=== PATIENT | male | born 1970 | race African-American/Black ===

== ENCOUNTER 2017-08-21 23:03 | Emergency (ER) | payer OTHER ==
[2017-08-21 23:13] VITALS: BP 141/101; PULSE 82; TEMP 98; BMI 28.3
--- NOTE | 2017-08-22 00:07 | PDOC ---
History of Present Illness - General Chief Complaint: Cold Symptoms Stated Complaint: COLD SYMPTOMS Time Seen by Provider: 08/22/17 00:00 - History of Present Illness Initial Comments: 08/22/17 00:15 The patient is a 47 year old male with a history of HTN who presents for evaluation of Cough and chest congestion. The patient reports a 1 week history of chest congestion with an associated productive cough with greenish sputum. He reports continued symptoms prompting his presentation to the ED for further evaluation. He otherwise denies fevers, chills, SOB, chest pain, nausea, vomiting, abdominal pain, or changes with urination or bowel movements. Past History - Past Medical History Allergies/Adverse Reactions: Allergies Allergy/AdvReac Type Severity Reaction Status Date / Time amoxicillin [Amoxicillin] Allergy Intermediate Verified 08/21/17 23:13 Penicillins Allergy Intermediate Verified 08/21/17 23:13 Home Medications: Ambulatory Orders Unobtainable Home Med List 0 dose .ROUTE UTDICT 10/08/12 Ciprofloxacin [Cipro] 500 mg PO BID #14 tablet 10/09/12 Ibuprofen [Motrin -] 600 mg PO QID #20 tablet 10/09/12 Azithromycin [Zithromax 250mg Tablets -] 250 mg PO UTDICT #6 tab 08/22/17 - Suicide/Smoking/Psychosocial Hx Smoking Status: Yes Smoking History: Never smoked Have you smoked in the past 12 months: No Number of Cigarettes Smoked Daily: 10 Information on smoking cessation initiated: No Hx Alcohol Use: No Drug/Substance Use Hx: No Review of Systems - Review of Systems Comments:: 08/22/17 00:17 Constitutional: No fevers, chills, fatigue, malaise HEENT: No Rhinorrhea, nasal congestion, visual changes Cardiovascular: No chest pain, syncope, palpitations, lightheadedness Respiratory: Cough. No SOB, Hemoptysis, Gastrointestinal: No Abdominal pain, Nausea, Vomiting, Constipation, Diarrhea, Melena Genitourinary: No Dysuria, Frequency, Urgency, Hesitancy, Hematuria, Flank pain Musculoskeletal: No Myalgia, arthralgia Skin: No rashes, itching, bruising, pallor Neurologic: No Headache, Dizziness, Numbness, Weakness, or Tingling Psychiatric: No Hallucinations. No SI or HI *Physical Exam - Vital Signs Last Vital Signs Temp Pulse Resp BP Pulse Ox 98.0 F 82 16 141/101 100 08/21/17 23:11 08/21/17 23:11 08/21/17 23:11 08/21/17 23:11 08/21/17 23:11 - Physical Exam Comments: 08/22/17 00:17 General Appearance: Nourished. No Apparent Distress HEENT: EOMI, TACO. No Pharyngeal Erythema, Tonsillar Exudate, Tonsillar Erythema Neck: No Cervical Lymphadenopathy Respiratory/Chest: Lungs Clear, Normal Breath Sounds. No Crackles, Rales, Rhonchi, Wheezing Cardiovascular: Regular Rhythm, Regular Rate. No Murmur, Gallops, Rubs Gastrointestinal/Abdominal: Normal Bowel Sounds, Soft. No Guarding, Rebound, Tenderness Musculoskeletal: No CVA Tenderness Extremity: Normal Capillary Refill Integumentary: Normal Color, Dry, Warm Neurologic: Fully Oriented, Alert, Normal Mood/Affect, Normal Response, Medical Decision Making - Medical Decision Making 08/22/17 00:18 The patient is a 47 year old male with a history of HTN who presents for evaluation of Cough and chest congestion. Differential includes but is not limited to: Pneumonia, viral URI. Given the patient's history, we will obtain a chest plain film to evaluate further. We will continue to monitor and reassess while here in the ED. 08/22/17 00:44 Chest x-ray is unremarkable as preliminarily read by ER physician. Given the length of the patient's symptoms, we will treat with azithromycin. We are comfortable discharging the patient home at this time with primary care provider follow up. We discussed the results, plan and return precautions with the patient who voiced understanding and is agreeable with the plan. *DC/Admit/Observation/Transfer Diagnosis at time of Disposition: Bronchitis - Discharge Dispostion Disposition: HOME Condition at time of disposition: Stable Decision to Admit order: No - Prescriptions Prescriptions: Azithromycin [Zithromax 250mg Tablets -] 250 mg PO UTDICT #6 tab - Referrals Referrals: Yeison Acevedo MD [Primary Care Provider] - - Patient Instructions Printed Discharge Instructions: DI for Acute Bronchitis Additional Instructions: Please return to the ER if you experience concerning or worsening symptoms including worsening difficulty breathing, fevers, or chest pain. We have sent a prescription to your pharmacy for antibiotics that you should take as directed. Please call to schedule a follow up appointment with your primary care provider within 2-3 days to discuss your ER visit and further management of your symptoms. - Post Discharge Activity
--- NOTE | 2017-08-22 01:16 | PDOC ---
Attending Attestation - Resident Resident Name: Migue Chairez - ED Attending Attestation I have performed the following: I have examined & evaluated the patient, The case was reviewed & discussed with the resident, I agree w/resident's findings & plan, Exceptions are as noted - HPI HPI: 08/22/17 01:14 Mr. Mccray is a 47-year-old male with a extensive smoking history who presents emergency Department tonight with a complaint of cough. His symptoms have been present for the past week. He's noted no fevers or chills. He denies exertional shortness of breath. He denies chest pain. He denies lower extremity edema. - Physicial Exam PE: 08/22/17 01:15 GENERAL: The patient is in no acute distress, sleeping in wheelchair LUNGS: Breath sounds equal, expiratory rhonchi, no wheezing noted HEART:Regular rate and rhythm, normal S1 and S2 without murmur, rub or gallop. ABDOMEN: Soft, nontender EXTREMITIES: Normal range of motion, no edema. NEUROLOGICAL: Cranial nerves II through XII grossly intact. Normal speech. No focal neurological deficits. MUSCULOSKELETAL: Back non-tender to palpation, no CVA tenderness SKIN: Warm, Dry, normal turgor, no rashes or lesions noted. - Medical Decision Making 08/22/17 01:15 47-year-old male presenting to emergency department with a complaint of cough. Patient has an extensive smoking history, though denies a history of COPD. Chest x-ray performed. No consolidation noted. Likely bronchitis Will treat with Azithromycin Pt asked to follow up with PMD Clinical impression: cough, initial presentation
[2017-08-22] MEDS ORDERED: AZITHROMYCIN 250 MG TABLET ONE (01:57)
== END 2017-08-22 02:06 | disposition home or self-care (01) ==
LOC: JER 23:03
DX: J20.9 Acute bronchitis, unspecified (principal); I10 Essential (primary) hypertension
CPT/HCPCS: 71046-TC-FY; 99281-25

== ENCOUNTER 2018-12-11 23:20 | Emergency (ER) | payer OTHER ==
[2018-12-11 23:46] VITALS: PULSE 77; BMI 25.7
--- NOTE | 2018-12-12 00:53 | PDOC ---
History of Present Illness - General Chief Complaint: Wound Stated Complaint: RASH Time Seen by Provider: 12/12/18 00:47 - History of Present Illness Initial Comments: 12/12/18 00:48 48 yo M with no significant pmh who p/w left sided suprapubic skin swelling. Patient reports 2 days of progressive left sided suprpapubic skin swelling, with 1 day of clear, whitish drainage. Patient denies h/o similar presentation. States that area of swelling is where he wears his seatbelt. Reports itching the area of swelling with fingernails and subsequent bleeding two days ago. States that he is scheduled to have vasectomy in two days. Took one Clindamyicn pill (12/11/18) that he had from prior odontogenic infection. Patient denies AGOSTO, vision change, palpitations, cough, wheezing, orthopena, PND , leg swelling/pain, N/V, F,C, CP, SOB, urinary complaints, hematuria, BPR, abdominal pain, diarrhea, constipation, lightheadedness, weakness, sensory changes. PMHx: as noted above ROS: as noted SHx: Denies IVDA Allergies: PCN Past History - Past Medical History Allergies/Adverse Reactions: Allergies Allergy/AdvReac Type Severity Reaction Status Date / Time amoxicillin [Amoxicillin] Allergy Intermediate Verified 12/12/18 01:11 Penicillins Allergy Intermediate Verified 12/12/18 01:11 Home Medications: Ambulatory Orders Unobtainable Home Med List 0 dose .ROUTE UTDICT 10/08/12 Ciprofloxacin [Cipro] 500 mg PO BID #14 tablet 10/09/12 Ibuprofen [Motrin -] 600 mg PO QID #20 tablet 10/09/12 Azithromycin [Zithromax 250mg Tablets -] 250 mg PO UTDICT #6 tab 08/22/17 Clindamycin [Cleocin -] 300 mg PO TID #21 capsule 12/12/18 Permethrin 5% Topical Cream [Elimite -] 1 applic TP ONCE #1 tube 12/12/18 - Suicide/Smoking/Psychosocial Hx Smoking Status: Yes Smoking History: Unknown if ever smoked Have you smoked in the past 12 months: No Number of Cigarettes Smoked Daily: 10 Hx Alcohol Use: No Drug/Substance Use Hx: No Review of Systems - Review of Systems Comments:: 12/12/18 00:48 GENERAL/CONSTITUTIONAL: No fever or chills. No weakness. HEAD, EYES, EARS, NOSE AND THROAT: No change in vision. No ear pain or discharge. No sore throat. CARDIOVASCULAR: No chest pain or shortness of breath RESPIRATORY: No cough, wheezing, or hemoptysis. GASTROINTESTINAL: No nausea, vomiting, diarrhea or constipation. GENITOURINARY: No dysuria, frequency, or change in urination. MUSCULOSKELETAL: No joint or muscle swelling or pain. No neck or back pain. SKIN: + Left sided suprapubic skin change. NEUROLOGIC: No headache, vertigo, loss of consciousness, or change in strength/ sensation. ENDOCRINE: No increased thirst. No abnormal weight change HEMATOLOGIC/LYMPHATIC: No anemia, easy bleeding, or history of blood clots. ALLERGIC/IMMUNOLOGIC: No hives or skin allergy. *Physical Exam - Vital Signs Last Vital Signs Temp Pulse Resp BP Pulse Ox 97.7 F 77 20 126/89 99 12/11/18 23:44 12/11/18 23:44 12/11/18 23:44 12/11/18 23:44 12/11/18 23:44 - Physical Exam Comments: 12/12/18 00:48 GENERAL: Awake, alert, and fully oriented, in no acute distress HEAD: No signs of trauma, normocephalic, atraumatic EYES: PERRLA, EOMI, sclera anicteric, conjunctiva clear ENT: Auricles normal inspection, hearing grossly normal, nares patent, oropharynx clear without exudates. Moist mucosa NECK: Normal ROM, supple, no lymphadenopathy, JVD, or masses LUNGS: No distress, speaks full sentences, clear to auscultation bilaterally HEART: Regular rate and rhythm, normal S1 and S2, no murmurs, rubs or gallops, peripheral pulses normal and equal bilaterally. ABDOMEN: Soft, nontender, normoactive bowel sounds. No guarding, no rebound. No masses GENITOURINARY: Neg scrotal, penile lesions. Neg testicular swelling, ttp. Neg penile discharge. Neg inguinal lymphadenopathy, or bulging. Neg perianal skin change. EXTREMITIES : Normal inspection, Normal range of motion, no edema. No clubbing or cyanosis NEUROLOGICAL: Cranial nerves II through XII grossly intact. Normal speech, normal gait, no focal sensorimotor deficits SKIN: + 4 x 2 cm, area of induration, firmness, with lateral punctum, actively draining white discharge. Absent fluctuance, erythema, streaking, lymphadenopathy. Warm, Dry, normal turgor, no rashes or lesions noted Procedures - Incision and Drainage I&D Site: Left: Groin Betadine cleansed: Yes Anesthesia: 1% Lidocaine Blade Size: 10 Iodinated Packin/4 in Plain Packing: No Complications: none Dressing: Yes Medical Decision Making - Medical Decision Making 12/12/18 00:53 48 yo M with no significant pmh who p/w left sided suprapubic skin swelling. Vitals wnl, AF, A&Ox4. Physical exam notable for + left sided suprapubic, 4 x 2 cm, area of induration, firmness, with lateral punctum, actively draining white discharge. Absent fluctuance, erythema, streaking, lymphadenopathy. Patient with 0/4 SIRS criteria. Absent evidence overlying cellulitis. Denies h/ o recurrent abscess. Absent immunocompormised status, or evidence of lymphangitis. I&D, antibiotics, reassess. Ed Course: 12/12/18 02:03 I&D performed with 10 cc of white, pus drainage under sterile procedure. 12/12/18 03:02 Clindamycin sent to pharmacy 12/12/18 03:44 Pt. stable for d/c with return precautions. *DC/Admit/Observation/Transfer Diagnosis at time of Disposition: Suprapubic abscess - Discharge Dispostion Condition at time of disposition: Stable Decision to Admit order: No - Prescriptions Prescriptions: Clindamycin [Cleocin -] 300 mg PO TID #21 capsule Permethrin 5% Topical Cream [Elimite -] 1 applic TP ONCE #1 tube - Referrals Referrals: Ashly Potts [Primary Care Provider] - Dalton Reyes MD [Staff Physician] - - Patient Instructions Printed Discharge Instructions: DI for Skin Abscess Additional Instructions: Please return to the emergency department with any new or worsening symptoms or concerns. Please follow up with your primary care physician within 24-72 hours. Take Clindamycin three times a day for seven days. - Post Discharge Activity
--- NOTE | 2018-12-12 00:58 | PDOC ---
Attending Attestation - Resident Resident Name: Clarence Morason - ED Attending Attestation I have performed the following: I have examined & evaluated the patient, The case was reviewed & discussed with the resident, I agree w/resident's findings & plan - HPI HPI: 12/12/18 02:56 see resident hpi - Physicial Exam PE: 12/12/18 02:56 agree with resident exam - Medical Decision Making 12/12/18 02:56 48 yo male with swelling over left pubic region c/w abscess I and D with copious purulent drainage performed by ED resident d/c with clindamycin
[2018-12-12 01:08] VITALS: BP 128/98; TEMP 97.9
[2018-12-12] MEDS ORDERED: ACETAMINOPHEN 1000 MG/100 ML VIAL (NON FORMULARY) IVPB ONE (01:38)
== END 2018-12-12 04:39 | disposition home or self-care (01) ==
LOC: JER 23:20
PROC: 0J9C0ZZ Drainage of Pelvic Region Subcutaneous Tissue and Fascia, Open Approach (ICD-10-PCS; principal; 2018-12-11)
PROC: 3E033NZ Introduction of Analgesics, Hypnotics, Sedatives into Peripheral Vein, Percutaneous Approach (ICD-10-PCS; 2018-12-11)
DX: L02.214 Cutaneous abscess of groin (principal)
CPT/HCPCS: 99282-25

== ENCOUNTER 2018-12-22 13:30 | Inpatient (IN) | payer OTHER ==
--- NOTE | 2018-12-22 13:43 | PDOC ---
History of Present Illness - General Chief Complaint: Pain, Acute Stated Complaint: ABSCESS LOWER ABD/LT.TESTICLE Time Seen by Provider: 12/22/18 13:42 History Source: Patient - History of Present Illness Initial Comments: 12/22/18 16:36 Mr. Mccray is a 48 y/o man with hx diabetes, EtOH use disorder, HTN, recent evaluation for I&D of suprapubic abscess p/w groin rash. He reports that the rash began on his upper thigh approx two days after his incision and drainage. He reports being prescribed Keflex after his incision and drainage but that he has missed several doses and still has pills left over. He reports that he noticed a dripping sensation down his thigh and was concerned that the abscess had begun to spread. He reports attempting to cover the site on his thigh with an otc cream, but became concerned when the skin became more firm. He attempted to cover it with talcum powder as well in an attempt to dry out the site. He reports discussing the wound with his primary care provider today, who recommended further evaluation in the ED. He reports that his I&D site has been healing well without pain or discharge. He denies any fevers, chills, nausea, vomiting, confusion, dysuria, or increased urinary frequency. Past History - Past Medical History Allergies/Adverse Reactions: Allergies Allergy/AdvReac Type Severity Reaction Status Date / Time amoxicillin [Amoxicillin] Allergy Intermediate Verified 12/22/18 13:43 Penicillins Allergy Intermediate Verified 12/22/18 13:43 Home Medications: Ambulatory Orders Atorvastatin Ca [Lipitor] 10 mg PO HS 12/22/18 Glipizide [Glipizide Xl] 2.5 mg PO DAILY 12/22/18 Hydrochlorothiazide 25 mg PO DAILY 12/22/18 Metformin HCl [Metformin HCl ER] 500 mg PO BID 12/22/18 Nebivolol HCl [Bystolic] 10 mg PO DAILY 12/22/18 COPD: No Diabetes: Yes HTN: Yes - Surgical History GI Surgery: No - Immunization History Immunization Up to Date: No - Psycho Social/Smoking Cessation Hx Smoking Status: Yes Smoking History: Current every day smoker Have you smoked in the past 12 months: Yes Number of Cigarettes Smoked Daily: 20 Information on smoking cessation initiated: No Hx Alcohol Use: Yes Drug/Substance Use Hx: Yes Review of Systems - Review of Systems Able to Perform ROS?: Yes Comments:: 12/22/18 18:33 ROS: GENERAL/CONSTITUTIONAL: No fever or chills. No weakness. HEAD, EYES, EARS, NOSE AND THROAT: No change in vision. No ear pain or discharge. No sore throat. CARDIOVASCULAR: No chest pain or shortness of breath RESPIRATORY: No cough, wheezing, or hemoptysis. GASTROINTESTINAL: No nausea, vomiting, diarrhea or constipation. GENITOURINARY: No dysuria, frequency, or change in urination. MUSCULOSKELETAL: No joint or muscle swelling or pain. No neck or back pain. SKIN: Rash on inner thigh with discharge. Healing wound from incision site. NEUROLOGIC: No headache, vertigo, loss of consciousness, or change in strength/ sensation. ENDOCRINE: No increased thirst. No abnormal weight change HEMATOLOGIC/LYMPHATIC: No anemia, easy bleeding, or history of blood clots. ALLERGIC/IMMUNOLOGIC: No hives or skin allergy. *Physical Exam - Vital Signs Last Vital Signs Temp Pulse Resp BP Pulse Ox 98 F 97 H 16 131/81 95 12/22/18 13:38 12/22/18 13:38 12/22/18 13:38 12/22/18 13:38 12/22/18 13:38 - Physical Exam Comments: 12/22/18 18:34 PE: GENERAL: Awake, alert, and fully oriented, in no acute distress HEAD: No signs of trauma, normocephalic, atraumatic EYES: PERRLA, EOMI, sclera anicteric, conjunctiva clear ENT: Auricles normal inspection, hearing grossly normal, nares patent, oropharynx clear without exudates. Moist mucosa NECK: Normal ROM, supple, no lymphadenopathy, JVD, or masses LUNGS: No distress, speaks full sentences, clear to auscultation bilaterally HEART: Regular rate and rhythm, normal S1 and S2, no murmurs, rubs or gallops, peripheral pulses normal and equal bilaterally. ABDOMEN: Soft, nontender, normoactive bowel sounds. No guarding, no rebound. No masses EXTREMITIES : Approx 8cm across scaling lesion with erythematous base, scrapable. No area of fluctuance below. Normal range of motion of LE, no edema. No clubbing or cyanosis NEUROLOGICAL: Cranial nerves II through XII grossly intact. Normal speech, normal gait, no focal sensorimotor deficits SKIN: Warm, Dry, normal turgor, except as described above. ED Treatment Course - LABORATORY CBC & Chemistry Diagram: 12/22/18 15:10 12/22/18 15:10 Medical Decision Making - Medical Decision Making 48M with hx EtOH use, DM, recent I&D with intermittent abx use p/w scaling infection with erythematous base, likely fungal. Differential includes cellulitis, abscess. Abscess unlikely given lack of fluctuance, appearance of rash. Plan: CBC CMP Nystatin cream outpatient tx Dispo: Likely home, pending labs 12/22/18 17:46 CMP - Glu - 587 Na - 127 K - 5.3 Plan for 2L IV NS, repeat POC Glucose, CMP repeat after fluids. Given likely fungal infection on upper thigh while on abx, uncontrolled DM, EtOH history, HTN, hyponatremia, concern for worsening of infection/risk of developing a fornier's gangrene or other severe infection. Plan for admission. 12/22/18 18:14 Repeat POC glucose - 367 --- Patient endorsed to inpatient team, admitted to Dr. Betancur. Discharge - Discharge Information Problems reviewed: Yes Clinical Impression/Diagnosis: Hyponatremia Cellulitis Qualifiers: Site of cellulitis: other site Qualified Code(s): L03.818 - Cellulitis of other sites Diabetes Qualifiers: Diabetes mellitus type: type 2 Diabetes mellitus buttermaker continuous churn insulin use: without buttermaker continuous churn use Diabetes mellitus complication status: with skin complications Diabetes mellitus complication detail: with other skin complication Qualified Code(s): E11.628 - Type 2 diabetes mellitus with other skin complications Condition: Stable Disposition: HOME - Admission Yes - Follow up/Referral - Patient Discharge Instructions - Post Discharge Activity
[2018-12-22 15:30] LABS: BASO % 1.2 % (0-2.0); EOS % 4.3 % (0-4.5); HEMATOCRIT 45.7 % (35.4-49); HEMOGLOBIN 14.9 GM/dL (11.7-16.9); MCH 27.4 pg (25.7-33.7); MCHC 32.5 g/dl (32.0-35.9); MEAN CELL VOLUME 84.2 fl (80-96); MEAN PLT VOLUME 9.4 fl (7.5-11.1); MONO % 5.5 % (3.8-10.2); PLATELET COUNT 362 K/MM3 (134-434); RBC 5.43 M/mm3 (4.00-5.60); RDW 14.1 % (11.9-15.9)
[2018-12-22 16:12] LABS: ALBUMIN 3.6 g/dl (3.4-5.0); BILIRUBIN,TOTAL 0.2 mg/dL (0.2-1); CALCIUM 9.5 mg/dL (8.5-10.1); CREATININE 1.5 mg/dL (0.55-1.3); POTASSIUM 5.3 mmol/L (3.5-5.1); TOT PROT 7.3 g/dl (6.4-8.2)
--- NOTE | 2018-12-22 16:15 | PDOC ---
Attending Attestation - Resident Resident Name: AndrezFransisco - ED Attending Attestation I have performed the following: I have examined & evaluated the patient, The case was reviewed & discussed with the resident, I agree w/resident's findings & plan, Exceptions are as noted - HPI HPI: 12/22/18 16:09 48 yo male h/o etoh abuse, htn dm here few weeks ago for abscess/ follulititis drained in suprapubic area. was given dc with clindamycin, now here /co groin rash. pt states he has been having itching and rash noted to his scrotum and inner thigh region. was using powder and cream. no improvement. has lost 20 lbs over last few months so noted skin fold in that area he didnt have before. maybe rubbing. no f/c no pain no dysuria. is still taking clindamycin. has urologist andpcp - Physicial Exam PE: 12/22/18 16:11 awake alert lungs clear bilat heart rrr no mrg abd soft nt nd ext wwp. skin warm and dry. scrotum with thickened hypertrophied skin lichenification, scarring from folliculitis. area of prior I &D no surrounding erythem.no warmth , no fluctuance. no crepitus. plan labs check sugar. hiv. will likely treat for candidiasis. topical nystatin. fu with urology. no current signs of celluiltlis. - Medical Decision Making 12/22/18 16:14 48 yo male with htn dm etoh abuse here with c/o scrotal rash, inner thigh, skin tickened and scarred, some moisture noted. candidiasis like rash. will treat with nystatin cream or poweder. urology folllowup.
[2018-12-22] MEDS ORDERED: SODIUM CHLORIDE 0.9% 1000 ML INFUS.BAG IV ONE ×2 (16:19)
[2018-12-22] MEDS ORDERED: SODIUM CHLORIDE 1,000 ML IV STA (18:50)
--- NOTE | 2018-12-22 18:50 | PN ---
Teaching Attending Note Name of Resident: Peewee Ríos ATTENDING PHYSICIAN STATEMENT I saw and evaluated the patient. I reviewed the resident's note and discussed the case with the resident. I agree with the resident's findings and plan as documented. SUBJECTIVE: Complains of itching of scrotum and upper thighs - no fever/chills/ nausea/vomiting. Reports cough/green sputum. No hemoptysis. No CP. OBJECTIVE: Afberile, Hemodynamically Stable. Last Vital Signs Temp Pulse Resp BP Pulse Ox 98.8 F 87 18 116/86 96 12/22/18 16:40 12/22/18 16:40 12/22/18 16:40 12/22/18 16:40 12/22/18 16:40 HEENT - Atramatic, Normocephalic. HEART - S1, S2, RRR LUNGS - clear to auscultation ABDOMEN - soft, non-tender. Bowel sounds normal. L suprapubic region of I and D non-erythematous/non-tender. EXTREMITIES - no edema/no calf tenderness/no erythema NEURO - AAO x 3. Tone/Power normal. Laboratory Results - last 24 hr 12/22/18 12/22/18 12/22/18 15:10 15:10 18:11 WBC 11.0 H RBC 5.43 Hgb 14.9 Hct 45.7 MCV 84.2 MCH 27.4 MCHC 32.5 RDW 14.1 D Plt Count 362 MPV 9.4 Absolute Neuts (auto) 7.7 Neutrophils % 70.0 Lymphocytes % 19.0 D Monocytes % 5.5 Eosinophils % 4.3 Basophils % 1.2 Nucleated RBC % 0 Sodium 127 L Potassium 5.3 H Chloride 92 L Carbon Dioxide 27 Anion Gap 8 BUN 27.0 H Creatinine 1.5 H Est GFR (CKD-EPI)AfAm 62.90 Est GFR (CKD-EPI)NonAf 54.27 POC Glucometer 362 Random Glucose 567 H* Calcium 9.5 Total Bilirubin 0.2 AST 13 L ALT 20 Alkaline Phosphatase 153 H Total Protein 7.3 Albumin 3.6 Home Medications Medication Instructions Recorded Atorvastatin Ca [Lipitor] 10 mg PO HS 12/22/18 Glipizide [Glipizide Xl] 2.5 mg PO DAILY 12/22/18 Hydrochlorothiazide 25 mg PO DAILY 12/22/18 Metformin HCl [Metformin HCl ER] 500 mg PO BID 12/22/18 Nebivolol HCl [Bystolic] 10 mg PO DAILY 12/22/18 ASSESSMENT AND PLAN: 1. Tinea Cruris scrotal/perineal area Nystatin powder No signs of Fornier's gangrene or Cellulitis 2. SHANDRA, likley pre-renal. ?sec to HCTZ/Hyperglycemia induced hypovolemia Hydration Hold HCTZ 3. Hyperglycemia sec to uncontrolled DM 2 - no evidence of DKA - no acidosis. Will give Levemir 10 and maintain on Novolog sliding scale. Oral antihyperglycemic medications held. Will request A1c 4. Cough, no evidence clinicaly of pneumonia, Afebrile, hemodynamoically stable. No leukocytosis. Will request CXR 5. Tobacco Use Disorder Counselled. Offered nicotine patch. 6. HTN - Continue Nebivolol. HCTZ held due to SHANDRA. 7. HLD -Continue Statin 8. Pseudohyponatremia - secondary to Hyperglycemia. Corrected Na 134-138 9. Hyperkalemia - sec to dehydration and SHANDRA. Will repeat after adequate hydration. 10. Recent I and D of suprapubic abscess - now drained, no surrounding erythema. No signs of active infection. Wound Care DVT Px - Hepairn SQ
[2018-12-22] MEDS ORDERED: INSULIN (LEVEMIR) 100 UNITS/ML UNITS SQ STA (18:57)
[2018-12-22 19:03] LABS: ALBUMIN 3.1 g/dl (3.4-5.0); BILIRUBIN,TOTAL 0.2 mg/dL (0.2-1); BLOOD UREA NITROGEN 22.3 mg/dL (7-18); CALCIUM 8.2 mg/dL (8.5-10.1); CREATININE 1.2 mg/dL (0.55-1.3); POTASSIUM 4.6 mmol/L (3.5-5.1); TOT PROT 6.1 g/dl (6.4-8.2)
--- NOTE | 2018-12-22 19:15 | HP ---
CHIEF COMPLAINT: itching uncomfortable feeling in the scrotum and upper thighs PCP: Angelina Biswas HISTORY OF PRESENT ILLNESS: 48M w/ pmh of NIDDM, HTN, HLD, recent lower abdominal wall abscess(s/p bedside I &D by ER on 12/12/18) sent by PCP for further evaluation of a perineal rash extending to scrotum. Patient complains of itching discomfort x1week, increasing area of pruritus. Denies drainage. Has tried BalmX and talc powder with little relief. Denies drainage at lower abd wall incision, said he was sent home with Clindamycin and the wound packed with strip gauze, but no instructions to pack the wound at home. Has not finished his home course of clindamycin. States that his doctor has reported his sugars in the 300s before. Endorses losing 20lbs in 3months w/o diet or exercise changes, attributes it to his metformin. Has cough with "green" sputum. Denies dysuria. Has sick son at home ER course was notable for: (1) NS 1L x2 (2) sugar 567 (3) Cr 1.5 Recent Travel: none PAST MEDICAL HISTORY: NIDDM, HTN, HLD, lower abd wall abscess PAST SURGICAL HISTORY: none Social History: Smokinppd x 19ys Alcohol: former regular drinker, last drink was 3mo prior Drugs: denies Allergies amoxicillin [Amoxicillin] Allergy (Intermediate, Verified 12/22/18 13:43) Penicillins Allergy (Intermediate, Verified 12/22/18 13:43) HOME MEDICATIONS: Home Medications Medication Instructions Recorded Atorvastatin Ca [Lipitor] 10 mg PO HS 12/22/18 Glipizide [Glipizide Xl] 2.5 mg PO DAILY 12/22/18 Hydrochlorothiazide 25 mg PO DAILY 12/22/18 Metformin HCl [Metformin HCl ER] 500 mg PO BID 12/22/18 Nebivolol HCl [Bystolic] 10 mg PO DAILY 12/22/18 REVIEW OF SYSTEMS CONSTITUTIONAL: +weight loss(20lbs in 3mo) Absent: fever, chills HEENT: Absent: difficulty swallowing, visual changes CARDIOVASCULAR: Absent: chest pain, palpitations, irregular heart rate, peripheral edema RESPIRATORY: productive cough x2d Absent: wheezing, stridor, hemoptysis GASTROINTESTINAL: Absent: abdominal pain, nausea, vomiting GENITOURINARY: Absent: dysuria, frequency, urgency SKIN: +rash x ~1wk ENDOCRINE: unexplained weight loss, Absent: unexplained weight gain NEUROLOGIC: Absent: headache, dizziness PHYSICAL EXAMINATION Vital Signs - 24 hr 12/22/18 12/22/18 12/22/18 13:38 15:11 16:40 Temperature 98 F 98.8 F Pulse Rate 97 H Pulse Rate [ 87 Left Radial] Respiratory 16 18 Rate Blood Pressure 131/81 Blood Pressure 116/86 [Right Arm] O2 Sat by Pulse 95 96 96 Oximetry (%) GENERAL: alert, NAD HEAD: Normal with no signs of trauma. No temporal swelling EYES: sclera anicteric, conjunctiva clear. EARS, NOSE, THROAT: Ears normal, nares patent, oropharynx clear without exudates. Moist mucous membranes. Neg thrush NECK: Normal range of motion, supple without lymphadenopathy LUNGS: expiratory crackles b/l. No accessory muscle use. HEART: Regular rate and rhythm, normal S1 and S2 without murmur, rub or gallop. ABDOMEN: Soft, nontender, not distended, no guarding, no rebound, no masses. 2cm umbilical hernia, reducible, nonTTP, no overlying skin changes MUSCULOSKELETAL: Normal range of motion at all joints. No bony deformities or tenderness. No CVA tenderness. UPPER EXTREMITIES: 2+ pulses, warm, well-perfused. LOWER EXTREMITIES: 2+ pulses, warm, well-perfused. No calf tenderness. No peripheral edema. NEUROLOGICAL: Normal speech. Normal gait. PSYCHIATRIC: Cooperative. Good eye contact. Appropriate mood and affect. SKIN: Warm, dry. Left abdominal pubic area with closed incisional wound w/o drainage, erythema, warmth. Lower scrotum with scaly peeling raised rash, nontender, not warm Laboratory Results - last 24 hr 12/22/18 12/22/18 12/22/18 15:10 15:10 18:10 WBC 11.0 H RBC 5.43 Hgb 14.9 Hct 45.7 MCV 84.2 MCH 27.4 MCHC 32.5 RDW 14.1 D Plt Count 362 MPV 9.4 Absolute Neuts (auto) 7.7 Neutrophils % 70.0 Lymphocytes % 19.0 D Monocytes % 5.5 Eosinophils % 4.3 Basophils % 1.2 Nucleated RBC % 0 Sodium 127 L 134 L Potassium 5.3 H 4.6 Chloride 92 L 102 Carbon Dioxide 27 24 Anion Gap 8 7 L BUN 27.0 H 22.3 H Creatinine 1.5 H 1.2 Est GFR (CKD-EPI)AfAm 62.90 82.38 Est GFR (CKD-EPI)NonAf 54.27 71.08 POC Glucometer Random Glucose 567 H* 372 H Calcium 9.5 8.2 L Total Bilirubin 0.2 0.2 AST 13 L 8 L ALT 20 18 Alkaline Phosphatase 153 H 118 H Total Protein 7.3 6.1 L Albumin 3.6 3.1 L 12/22/18 18:11 WBC RBC Hgb Hct MCV MCH MCHC RDW Plt Count MPV Absolute Neuts (auto) Neutrophils % Lymphocytes % Monocytes % Eosinophils % Basophils % Nucleated RBC % Sodium Potassium Chloride Carbon Dioxide Anion Gap BUN Creatinine Est GFR (CKD-EPI)AfAm Est GFR (CKD-EPI)NonAf POC Glucometer 362 Random Glucose Calcium Total Bilirubin AST ALT Alkaline Phosphatase Total Protein Albumin ASSESSMENT/PLAN: 48M w/ pmh of NIDDM, HTN, HLD, recent lower abdominal wall abscess(s/p bedside I &D by ER on 12/12/18) sent by PCP for perineal fungal dermatitis w/ hyperglycemia and SHANDRA. #perineal fungal dermatitis -- no clinical evid for soft tissue infection -Nystatin powder -monitor #SHANDRA --possibly pre-renal 2/2 hyperglycemia -IVF bolus -- NS 1L x2; NS 1L x1 -mIVF #Hyperglycemia -- no clinical evidence of DKA -levimir 10U once -ISS -hold home oral DM meds -fu HbA1c #productive cough -- likely URI >WBC 11 -fu CXR #Tobacco Use Disorder -smoking cessation debt counselor -nicotine patch #chronic HTN >BP 116/86 -cw home Nebivolol -hold home HCTZ until resolution of SHANDRA #chronic HLD -cw home lipitor #Pseudohyponatremia - secondary to Hyperglycemia. >Na 127, glu 567 >Corrected Na 134-138 -monitor lytes after insulin #Hyperkalemia - sec to dehydration and SHANDRA. -monitor lytes after IVF #lower abdominal abscess(s/p bedside ID 12/12/18) -- no clinical signs of recurrent infection -wound care -monitor FEN: -diabetic diet -NS @125 DVT: -sq heparin Dispo: -admit: medsurg -dc plan: unk at this time but likely home w/o needs Family Medical History Family Hx Nuerologic Problems: Son (spinal bifida) Problem List - Problem (1) Abdominal wall abscess Code(s): L02.211 - CUTANEOUS ABSCESS OF ABDOMINAL WALL (2) Fungal dermatitis Code(s): B36.9 - SUPERFICIAL MYCOSIS, UNSPECIFIED (3) Hyperglycemia Code(s): R73.9 - HYPERGLYCEMIA, UNSPECIFIED (4) Hyperkalemia Code(s): E87.5 - HYPERKALEMIA (5) Tobacco use disorder Code(s): F17.200 - NICOTINE DEPENDENCE, UNSPECIFIED, UNCOMPLICATED (6) SHANDRA (acute kidney injury) Code(s): N17.9 - ACUTE KIDNEY FAILURE, UNSPECIFIED (7) Diabetes Code(s): E11.9 - TYPE 2 DIABETES MELLITUS WITHOUT COMPLICATIONS Qualifiers: Diabetes mellitus type: type 2 Diabetes mellitus care home insulin use: without care home use Diabetes mellitus complication status: with skin complications Diabetes mellitus complication detail: with other skin complication Qualified Code(s): E11.628 - Type 2 diabetes mellitus with other skin complications (8) Hyponatremia Code(s): E87.1 - HYPO-OSMOLALITY AND HYPONATREMIA Visit type - Emergency Visit Emergency Visit: Yes ED Registration Date: 12/22/18 Care time: The patient presented to the Emergency Department on the above date and was hospitalized for further evaluation of their emergent condition. - New Patient This patient is new to me today: Yes Date on this admission: 12/22/18 - Critical Care Critical Care patient: No ATTENDING PHYSICIAN STATEMENT I saw and evaluated the patient. I reviewed the resident's note and discussed the case with the resident. I agree with the resident's findings and plan as documented. SUBJECTIVE: OBJECTIVE: ASSESSMENT AND PLAN:
[2018-12-22] MEDS ORDERED: HEPARIN NA (PORCINE) 5,000 UNITS/ML 1ML VIAL ONE (19:22)
[2018-12-22] MEDS: HEPARIN NA (PORCINE) 5,000 UNITS/ML 1ML VIAL SQ SCH ×2 (19:30→21:15)
[2018-12-22] MEDS: SODIUM CHLORIDE 1,000 ML IV SCH (20:05)
[2018-12-22] MEDS: NICOTINE 7 MG/24 HOURS TOPICAL PATCH TD SCH (20:26)
[2018-12-22 20:44] VITALS: BMI 26.9
[2018-12-22] MEDS: INSULIN SLIDING SCALE (NOVOLOG) 1 VIAL SQ SCH (21:20)
[2018-12-22] MEDS ORDERED: ATORVASTATIN CA 10 MG TABLET (FP) PO SCH (22:00)
[2018-12-22] MEDS: NYSTATIN POWDER 100,000 UNITS/GM - 15 GM TOPICAL POWDER TP SCH (22:53)
[2018-12-23] MEDS: SODIUM CHLORIDE 1,000 ML IV SCH (04:12)
[2018-12-23] MEDS: HEPARIN NA (PORCINE) 5,000 UNITS/ML 1ML VIAL SQ SCH (05:28)
[2018-12-23] MEDS: INSULIN SLIDING SCALE (NOVOLOG) 1 VIAL SQ SCH ×2 (06:08→11:49)
[2018-12-23 08:41] LABS: BLOOD UREA NITROGEN 12.9 mg/dL (7-18); CALCIUM 8.3 mg/dL (8.5-10.1); CREATININE 0.8 mg/dL (0.55-1.3); MAGNESIUM 2.2 mg/dL (1.8-2.4); PHOSPHOROUS 2.6 mg/dL (2.5-4.9); POTASSIUM 4.3 mmol/L (3.5-5.1)
[2018-12-23] MEDS ORDERED: PT OWN MED DRAWER 7, Y5N ONE ×2 (09:16→11:44)
[2018-12-23] MEDS: NICOTINE 7 MG/24 HOURS TOPICAL PATCH TD SCH (09:17)
[2018-12-23] MEDS: NYSTATIN POWDER 100,000 UNITS/GM - 15 GM TOPICAL POWDER TP SCH (09:18)
[2018-12-23] MEDS ORDERED: NEBIVOLOL 10 MG TABLET (FP) PO SCH (10:00)
--- NOTE | 2018-12-23 12:45 | DS ---
Physical Exam: SUBJECTIVE: Improvement in itching of scrotum and upper thighs - no fever/chills /nausea/vomiting. OBJECTIVE: Afberile, Hemodynamically Stable. Last Vital Signs Temp Pulse Resp BP Pulse Ox 98 F 75 20 126/85 97 12/23/18 06:46 12/23/18 06:46 12/23/18 06:46 12/23/18 06:46 12/22/18 20:34 HEART - S1, S2, RRR LUNGS - clear to auscultation ABDOMEN - soft, non-tender. Bowel sounds normal. L suprapubic region of I and D non-erythematous/non-tender. No signs of cellulitis. EXTREMITIES - no edema/no calf tenderness/no erythema NEURO - AAO x 3. Tone/Power normal. Laboratory Results - last 24 hr 12/22/18 12/22/18 12/22/18 15:10 15:10 18:10 WBC 11.0 H RBC 5.43 Hgb 14.9 Hct 45.7 MCV 84.2 MCH 27.4 MCHC 32.5 RDW 14.1 D Plt Count 362 MPV 9.4 Absolute Neuts (auto) 7.7 Neutrophils % 70.0 Lymphocytes % 19.0 D Monocytes % 5.5 Eosinophils % 4.3 Basophils % 1.2 Nucleated RBC % 0 Sodium 127 L 134 L Potassium 5.3 H 4.6 Chloride 92 L 102 Carbon Dioxide 27 24 Anion Gap 8 7 L BUN 27.0 H 22.3 H Creatinine 1.5 H 1.2 Est GFR (CKD-EPI)AfAm 62.90 82.38 Est GFR (CKD-EPI)NonAf 54.27 71.08 POC Glucometer Random Glucose 567 H* 372 H Hemoglobin A1c % Calcium 9.5 8.2 L Phosphorus Magnesium Total Bilirubin 0.2 0.2 AST 13 L 8 L ALT 20 18 Alkaline Phosphatase 153 H 118 H Total Protein 7.3 6.1 L Albumin 3.6 3.1 L 12/22/18 12/22/18 12/22/18 18:11 19:25 21:18 WBC RBC Hgb Hct MCV MCH MCHC RDW Plt Count MPV Absolute Neuts (auto) Neutrophils % Lymphocytes % Monocytes % Eosinophils % Basophils % Nucleated RBC % Sodium Potassium Chloride Carbon Dioxide Anion Gap BUN Creatinine Est GFR (CKD-EPI)AfAm Est GFR (CKD-EPI)NonAf POC Glucometer 362 336 385 Random Glucose Hemoglobin A1c % Calcium Phosphorus Magnesium Total Bilirubin AST ALT Alkaline Phosphatase Total Protein Albumin 12/23/18 12/23/18 12/23/18 05:52 07:50 07:50 WBC RBC Hgb Hct MCV MCH MCHC RDW Plt Count MPV Absolute Neuts (auto) Neutrophils % Lymphocytes % Monocytes % Eosinophils % Basophils % Nucleated RBC % Sodium 139 Potassium 4.3 Chloride 108 H Carbon Dioxide 26 Anion Gap 6 L BUN 12.9 Creatinine 0.8 Est GFR (CKD-EPI)AfAm 122.43 Est GFR (CKD-EPI)NonAf 105.63 POC Glucometer 113 Random Glucose 145 H Hemoglobin A1c % 14.8 H Calcium 8.3 L Phosphorus 2.6 Magnesium 2.2 Total Bilirubin AST ALT Alkaline Phosphatase Total Protein Albumin 12/23/18 11:48 WBC RBC Hgb Hct MCV MCH MCHC RDW Plt Count MPV Absolute Neuts (auto) Neutrophils % Lymphocytes % Monocytes % Eosinophils % Basophils % Nucleated RBC % Sodium Potassium Chloride Carbon Dioxide Anion Gap BUN Creatinine Est GFR (CKD-EPI)AfAm Est GFR (CKD-EPI)NonAf POC Glucometer 297 Random Glucose Hemoglobin A1c % Calcium Phosphorus Magnesium Total Bilirubin AST ALT Alkaline Phosphatase Total Protein Albumin Current Medications Generic Name Dose Route Start Last Admin Trade Name Freq PRN Reason Stop Dose Admin Atorvastatin Calcium 10 mg 12/22/18 22:00 12/22/18 21:18 Lipitor - PO 10 mg HS RODRÍGUEZ Administration Heparin Sodium (Porcine) 5,000 unit 12/22/18 19:15 12/23/18 05:28 Heparin - SQ 5,000 unit TID RODRÍGUEZ Administration Sodium Chloride 1,000 mls @ 125 mls/hr 12/22/18 19:49 12/23/18 04:12 Normal Saline - IV 125 mls/hr ASDIR RODRÍGUEZ Administration Insulin Aspart 1 vial 12/22/18 22:00 12/23/18 11:49 Novolog Vial Sliding Scale - SQ 6 units ACHS RODRÍGUEZ Administration Protocol Nebivolol 10 mg 12/23/18 10:00 12/23/18 11:48 Bystolic - PO 10 mg DAILY RODRÍGUEZ Administration Nicotine 7 mg 12/22/18 20:15 12/23/18 09:17 Nicoderm Patch - TD Not Given DAILY RODRÍGUEZ Nystatin 1 applic 12/22/18 22:00 12/23/18 09:18 Nystop Powder - TP 1 applic BID RODRÍGUEZ Administration Discharge Medications Medication Instructions Recorded Atorvastatin Ca [Lipitor] 10 mg PO HS 12/22/18 Glipizide [Glipizide Xl] 2.5 mg PO DAILY@0700 12/22/18 Metformin HCl [Metformin HCl ER] 500 mg PO BIDAC 12/22/18 Nebivolol HCl [Bystolic] 10 mg PO DAILY 12/22/18 Nicotine Patch [Nicoderm Patch -] 7 mg TD DAILY 30 Days #30 patch 12/23/18 Nystatin Cream [Mycostatin Cream -] 1 applic TP BID 10 Days #1 tube 12/23/18 Date of Admission:12/22/18 Date of Discharge: 12/23/18 Minutes to complete discharge: 45 Discharge Summary Problems reviewed: Yes Reason For Visit: DIABETES MELLITUS,CELLULITIS Current Active Problems SHANDRA (acute kidney injury) (Acute) Abdominal wall abscess (Acute) Cellulitis (Acute) Diabetes (Acute) Fungal dermatitis (Acute) Hyperglycemia (Acute) Hyperkalemia (Acute) Hyponatremia (Acute) Tinea cruris (Acute) Tobacco use disorder (Acute) Hospital Course: 48 year old male with HTN, HLD, DM 2, recent lower abdominal wall/suprapubic abscess (s/p bedside I&D by ER on 12/12/18) sent back to ED by PCP for further evaluation of inguinal/perineal scally and itchy rash for 1 week. 1. Tinea Cruris scrotal/perineal area responding to Nystatin No signs of Fornier's gangrene or Cellulitis 2. SHANDRA, pre-renal secondary to HCTZ/Hyperglycemia induced Hypovolemia Responded to hydration with resolution. Creat now 0.8. Advised to stop HCTZ until PCP follow up for BP monitoring. 3. Hyperglycemia sec to uncontrolled DM 2 - no evidence of DKA - no acidosis. Resolved with IV hydration and Insulin. A1C 14.8 Patient declines initiation of home insulin therapy at this time. He admits to poor compliance with oral anti-diabetic medications. Importance of medication compliance urged and risks of non-compliance discussed. He agrees to resume metformin and Glipizide and to follow up as an out-patient with Endocrinology, with regular home glucose checks. He has a supply of diabetes meds and Glucometer strips. 4. Cough, no evidence clinically of pneumonia, Afebrile, hemodynamoically stable. No leukocytosis. CXR negative Likely URI, no need for Abx therapy. 5. Tobacco Use Disorder Counselled. Prescribed nicotine patch. 6. HTN - Continue Nebivolol. HCTZ held as above. 7. HLD -Continue Statin 8. Hyperkalemia - sec to dehydration and SHANDRA - resolved. 9. Recent I and D of suprapubic abscess - now drained, no surrounding erythema. No signs of active infection. No need for ongoing abx therapy. Medically stable for discharge. Declines insulin therapy. Importance of resuming home diabetic regimen and following up with PCP and Endocrinology emphasized. Patient verbalized understanding and agrees. Condition: Stable - Instructions Diet, Activity, Other Instructions: DISCHARGE DIAGNOSES 1. TINEA CRURIS - INGUINAL and PERINEAL REGION 2. UNCONTROLLED DIABETES MELLITUS 2 3. Acute renal Injury due to Hydrochlorothiazide SECONDARY DIAGNOSES HTN FOLLOW UP: 1. PCP - Dr. Potts - for BP and DM 2 monitoring. 2. ENDOCRINOLOGY - Dr. Bhardwaj PRESCRIPTIONS: NYSTATIN TWICE DAILY CREAM PLEASE STOP Hydrochlorothiazide until you visit your PCP. Importance of adherence to Diabetes medication regimen stressed. Please take all medications as listed on discharge paperwork. Referrals: Ashly Potts [Primary Care Provider] - 1 Week Jens Bhardwaj MD [Staff Physician] - 1 Week - Home Medications Comprehensive Discharge Medication List: Ambulatory Orders Atorvastatin Ca [Lipitor] 10 mg PO HS 12/22/18 Glipizide [Glipizide Xl] 2.5 mg PO DAILY@0700 12/22/18 Metformin HCl [Metformin HCl ER] 500 mg PO BIDAC 12/22/18 Nebivolol HCl [Bystolic] 10 mg PO DAILY 12/22/18 Nicotine Patch [Nicoderm Patch -] 7 mg TD DAILY 30 Days #30 patch 12/23/18 Nystatin Cream [Mycostatin Cream -] 1 applic TP BID 10 Days #1 tube 12/23/18 This patient is new to me today: No Emergency Visit: Yes ED Registration Date: 12/22/18 Care time: The patient presented to the Emergency Department on the above date and was hospitalized for further evaluation of their emergent condition. Critical Care patient: No - Discharge Referral Referred to [facility] No
[2018-12-23 15:42] VITALS: BP 103/67; PULSE 76; TEMP 98.2
== END 2018-12-23 13:43 | disposition home or self-care (01) | DRG 683 ==
LOC: JER 13:30 → JERBED 17:34 → J8W 19:48
DX: N17.9 Acute kidney failure, unspecified (principal); E87.1 Hypo-osmolality and hyponatremia; E11.65 Type 2 diabetes mellitus with hyperglycemia; B35.6 Tinea cruris; I10 Essential (primary) hypertension; E78.5 Hyperlipidemia, unspecified; E87.5 Hyperkalemia; R05 Cough; F17.210 Nicotine dependence, cigarettes, uncomplicated
CPT/HCPCS: 36415; 71046-TC-FY; 80048; 80053; 82962; 83036; 83735; 84100; 85025; 87389; 99283-25; J1644; J7030